=== PATIENT | male | born 1960 | race Caucasian/White ===

== ENCOUNTER 2025-04-03 10:58 | Outpatient (REF) | payer MEDICARE, MEDICAID, SELFPAY ==
--- NOTE | ~2025-04-03 | MR_ITS ---
EXAMINATION: MR ABDOMEN WITHOUT AND WITH CONTRAST CLINICAL INFORMATION: Follow-up kidneys lesion in the right renal pole. Asymptomatic. COMPARISON: None available. TECHNIQUE: MR abdomen was performed without and with use of 7 mL intravenous (Gadavist) gadolinium contrast. Postcontrast images are performed in multiphase dynamic sequences. Imaging was performed in 3 planes. No reported immediate complications FINDINGS: There is no prior examination in our system. Limited by patient's motion artifact. LUNG BASES: No enhancing lesion. Enlarged heart. LIVER, GALLBLADDER, AND BILIARY TREE: Liver measures 15 cm. No focal lesion. Portal vein, hepatic veins and intrahepatic portion of the IVC are patent. No intrahepatic biliary ductal dilatation. Multiple layering intraluminal lesions in the gallbladder lumen without pericholecystic fluid collection or gallbladder wall thickening. Common bile duct measures 4 mm. PANCREAS: No focal mass. No main pancreatic ductal dilatation. No peripancreatic fluid collection. SPLEEN: 10 cm. No focal lesion. ADRENAL GLANDS: No nodular lesions. KIDNEYS AND URETERS: Right kidney: Focal cortical defect posterior upper pole/midportion without enhancing mass. There are a few, scattered, less than 7 mm nonenhancing fluid signal characteristic lesions throughout the auricle medullary junction, the largest in the posterior upper pole midportion. Renal cortical thinning. No hydronephrosis. Renal vessels are patent. No perinephric enhancing lesion or fluid collection. Left kidney: Smaller when compared with the contralateral side. Renal cortical thinning. No focal enhancing mass. Less than 3 mm fluid signal characteristic lesions, the most conspicuous in the posterior lower pole. No hydronephrosis. No enhancing lesion or fluid collections in the perinephric/pararenal compartment. The renal vessels are patent. GASTROINTESTINAL TRACT: Abundant stool, large intestine. No intestinal obstruction pattern. ABDOMINAL WALL: Small fat-containing umbilical hernia. LYMPH NODES: Not enlarged. VASCULAR: Irregular shaped mixed plaques throughout the abdominal aorta wall and the origin of the mesenteric arteries and main renal arteries. There is a focal narrowing at the origin of the celiac trunk and to a lesser extent superior mesenteric artery. No aneurysm or dissection, abdominal aorta. 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 Multilevel thoracolumbar spondylosis. No acute fracture. MR/MR abdomen wo/w con IMPRESSION: Bosniak type I cysts, bilaterally. Asymmetric volume loss/atrophy left kidney. Atherosclerosis disease with the high degree stenosis at the origin of the celiac trunk and superior mesenteric artery. Cholelithiasis. Probable cardiomegaly. Electronically signed by: Rei Paz MD 04/03/2025 12:53 PM EDT RP
[2025-04-03] MEDS: gadobutroL 7.5 ML VIAL IVPUSH (12:16)
--- OUTSIDE RECORDS SUMMARY | 2025-04-03 12:31 | XMS_ITS | Clinical Summary ---
Author Organization [facility], Address [address] [place] [phone] Phone Care Team Providers Care Medical Claims Assistant Name Role Phone Tom Sewell DO Primary Care Provider [phone] Allergies No known active allergies Medications acetaminophen (TYLENOL) 325 MG tablet Take by mouth every 6 (six) hours if needed for mild pain Active atorvastatin (LIPITOR) 80 MG tablet Take 80 mg by mouth 1 (one) time each day Active cyanocobalamin (VITAMIN B-12) 250 MCG tablet Take 250 mcg by mouth 1 (one) time each day Active valproic acid (DEPAKENE) 250 MG capsule Take 250 mg by mouth in the morning and 250 mg in the evening and 250 mg before bedtime. Active apixaban (Eliquis) 2.5 MG tablet Take 2.5 mg by mouth in the morning and 2.5 mg in the evening. Active sacubitril-valsa rtan (Entresto) 24-26 MG per tablet Take 1 tablet by mouth in the morning and 1 tablet in the evening. Active ezetimibe (ZETIA) 10 MG tablet Take 10 mg by mouth 1 (one) time each day Active Dapagliflozin Propanediol (Farxiga) 10 MG tablet Take 10 mg by mouth 1 (one) time each day in the morning Active folic acid (FOLVITE) 1 MG tablet Take 1 mg by mouth 1 (one) time each day Active furosemide (LASIX) 20 MG tablet Take 20 mg by mouth in the morning and 20 mg in the evening. Active omeprazole OTC (PriLOSEC OTC) 20 MG EC tablet Take 20 mg by mouth 1 (one) time each day Do not crush, chew, or split. Active Sennosides (Senna) 8.6 MG capsule Take by mouth Active thiamine (VITAMIN B-1) 100 MG tablet Take 100 mg by mouth 1 (one) time each day Active cyancobalamine (VITAMIN B-12) 250 MCG tablet Take 250 mcg by mouth 1 (one) time each day Active Active Problems Problem Noted Date Diagnosed Date Stage 3b chronic kidney disease 12/19/2024 Acute exacerbation of chronic congestive heart f ailure 12/17/2024 Type 2 diabetes mellitus without complication Acute pulmonary edema 06/21/2024 Essential (primary) hypertension 06/21/2024 Anemia 11/29/2023 Paroxysmal atrial fibrillation 11/28/2023 Acute hypoxemic respiratory failure 11/07/2023 Immunizations Immunization Administration Dates Next Due Moderna SARS-COV-2 12/17/2021 Pfizer SARS-COV-2 01/04/2021,12/14/2020 Pneumococcal Conjugate 13-Valent 06/15/2010 Shingrix 01/19/2023 Tdap 09/06/2012 Tetanus 07/27/2022 Social History Tobacco Use Types Packs/Day Years Used Date Smoking Tobacco: Never Assessed Sex and Gender Information Value Date Recorded Sex Assigned at Not on file Legal Sex Male 9:33 AM EDT Gender Identity Not on file Sexual Orientation Not on file Plan of Treatment Upcoming Encounters Date Type Department Care Team (Late st Contact Info) Description 06/12/2025 11:00 AM EDT Office Visit [facility] [address] [place] [phone] Dhiraj Spencer MD [address] [place] [phone] Health Maintenance Due Date Last Done Comments Colorectal Cancer Screening: Annual FOBT 2010 Colorectal Cancer Screening: Colonoscopy 2010 Colorectal Cancer Screening: Sigmoidoscopy 2010 Pneumococcal Vaccine: 50+ Ye ars (2 of 2 - PPSV23) 08/10/2010 06/15/2010 Diabetes: Hemoglobin A1C 10/29/2024 Diabetes: Ophthalmology Exam 10/29/2024 Diabetes: Pedal Pulse Checked 10/29/2024 Diabetes: Sensory Foot Exam 10/29/2024 Diabetes: Visual Foot Exam 10/29/2024 Influenza Vaccine (Season Ended) 2025 Pneumococcal Vaccine: Peds ( 0 to 5 Years) and At-Risk Patients (6 to 49 Years) Discontinued 06/15/2010 Hepatitis B Vaccine Aged Out No longe r eligible based on patient's age to complete this topic Insurance Medicare [facility] Care Teams Medical Claims Assistant Relationship Specialty Start Date End Date Tom Sewell DO [address] [place] [address] PCP - General Nephrology 09/30/24
--- OUTSIDE RECORDS SUMMARY | 2025-04-03 12:31 | XMS_ITS | Encounter Summary ---
Author Organization [facility], Address [address] [place] [address] Phone Care Team Providers Care Desktop Publisher Name Role Phone Tom Sewell DO Primary Care Provider [phone] Encounter Details Date Type Department Care Team (Late st Contact Info) Description 12/26/2024 [facility] [place] [phone] Dhiraj Spencer MD [address] [facility] [place] [address] Social History Tobacco Use Types Packs/Day Years Used Date Smoking Tobacco: Never Assessed Sex and Gender Information Value Date Recorded Sex Assigned at Not on file Legal Sex Male 9:33 AM EDT Gender Identity Not on file Sexual Orientation Not on file documented as of this encounter Plan of Treatment Upcoming Encounters Date Type Department Care Team (Late st Contact Info) Description 06/12/2025 11:00 AM EDT [facility] [address] [place] [phone] Dhiraj Spencer MD [address] [facility] [place] [address] documented as of this encounter Visit Diagnoses Not on filedocumented in this encounter Care Teams Desktop Publisher Relationship Specialty Start Date End Date Tom Sewell DO [address] [place] [phone] PCP - General Nephrology 09/30/24 documented as of this encounter
== END 2025-04-03 10:59 | disposition home or self-care (01) ==
LOC: HO.MRI 10:58
PROVIDERS: PCP Internal Medicine Nephrology; Visit Provider Internal Medicine Nephrology
DX: N28.89 Other specified disorders of kidney and ureter (principal)
CPT/HCPCS: 74183; A9585

== ENCOUNTER → 2025-04-03 11:30 | Outpatient (BNV) | payer MEDICARE, MEDICAID, SELFPAY | PROVIDERS: PCP Internal Medicine Nephrology; Visit Provider Radiology Diagnostic Radiology | DX: N28.1 Cyst of kidney, acquired (principal); K80.20 Calculus of gallbladder without cholecystitis without obstruction; I70.90 Unspecified atherosclerosis | CPT/HCPCS: 74183 ==